=== PATIENT | male | born 1945 | race Caucasian/White ===

== ENCOUNTER 2018-03-01 12:31 | Emergency (ER) | payer MEDICARE, OTHER ==
--- NOTE | 2018-03-01 12:56 | ER Document Report ---
HPI - HPI Pain Level: 0 Notes: Patient is a 72-year-old male with a history of type 2 diabetes, chronic ulcer to the right heel, portal hypertension, ascites, congestive heart failure, pulmonary edema, lymphedema, A. fib who presents to the ED from the nursing facility complaining of an injury to his rt foot/toe. The nursing facility nurse states that he hit his foot off of his roommates wheelchair and then started bleeding. Patient is on Coumadin. Did not hit his head or lose consciousness. He has not had any nausea or vomiting. He has no other concerns or complaints at this time. Denies any headache, fever, head injury, neck pain, changes in vision/speech/mentation/hearing, URI, sore throat, chest pain, palpitations, syncope, cough, shortness of breath, wheeze, dyspnea, abdominal pain, nausea/vomiting/diarrhea, urinary retention, dysuria, hematuria , muscle paralysis/weakness, or rash. - ROS Systems Reviewed and Negative: Yes All other systems reviewed and negative Past Medical History - Social History Smoking Status: Unknown if Ever Smoked Family History: Reviewed & Not Pertinent Vertical Provider Document - CONSTITUTIONAL Agree With Documented VS: Yes Notes: PHYSICAL EXAMINATION: GENERAL: Well-appearing, well-nourished and in no acute distress. Answers questions appropriately. LUNGS: Breath sounds clear to auscultation bilaterally and equal. No wheezes rales or rhonchi. HEART: Regular rate and rhythm without murmurs, rubs, gallops. Musculoskeletal: Rt foot/ankle: + chronic appearing ulcer w/o erythema to the heel. + 2cm irregular semi deep laceration to the plantar 5th digit at the proximal fold. FROM to passive/active. Strength 5+/5. + dec sensation. No bony tenderness of the foot. Achilles intact. Extremities: 3+ pitting edema b/l. Peripheral pulses 1+. Capillary refill less than 3 seconds. NEUROLOGICAL: Normal speech. Normal sensory, motor exams PSYCH: Normal mood, normal affect. SKIN: see above. Warm, Dry, normal turgor, no rashes or lesions noted. - INFECTION CONTROL TRAVEL OUTSIDE OF THE [place] IN LAST 30 DAYS: No Course - Re-evaluation Re-evalutation: 03/01/18 13:50 Patient is an afebrile, well-hydrated, 72-year-old male who presents to the ED with a laceration to the rt 5th proximal anterior toe. Vitals are acceptable without any significant tachycardia, tachypnea, or hypoxia. PE is otherwise unremarkable for any neurovascular compromise, obvious tendon/ligament rupture, open fracture/dislocation, septic joint. X-ray was unremarkable for any acute pathology. Wound was thoroughly irrigated and cleansed. Wound edges were approximated appropriately utilizing 7 simple interrupted sutures. Wound dressing was placed for the toe as well as the ulcer on the heel. Wound instructions reviewed. Patient tolerated procedure well without any complications. Patient is nontoxic-appearing. No other labs or imaging warranted at this time based on H&P. I will send him home with a prescription for Keflex. Patient reports that his tetanus is up-to-date <5yrs per pt. Conservative measures otherwise for symptoms. Recheck with your PCM in 2-3 days. Consider consult orthopedics. Return to the ED with any worsening/ concerning symptoms otherwise as reviewed in discharge. Patient is in agreement. Procedures - Laceration/Wound Repair Right Toe 5th digit Time completed: 13:45 Wound length (cm): 0.7 Wound's Depth, Shape: Irregular, Other - semi deep. I could see an intact tendon. Not much tissue from skin to tendon/bone in that area. Laceration pre-procedure: Sterile PPE donned, Sterile drapes applied, Other - chlorhexadine Anesthetic type: 1% Lidocaine Volume Anesthetic (mLs): 5 Wound explored: Clean, No foreign body removed Irrigated w/ Saline (mLs): 120 Wound Debrided: none Wound Repaired With: Sutures Suture Size/Type: 4:0, Nylon Number of Sutures: 7 Layer Closure?: No Post-procedure wound care: Sterile dressing applied Post-procedure NV exam normal: Yes Complications: No Discharge - Discharge Clinical Impression: Laceration of toe, right Qualifiers: Encounter type: initial encounter Toe: lesser toe Damage to nail status: without damage Foreign body presence: without foreign body Qualified Code(s): S91.114A - Laceration without foreign body of right lesser toe(s) without damage to nail, initial encounter Condition: Stable Disposition: HOME, SELF-CARE Instructions: Antibiotic Ointment Protection ([facility]), Laceration Care ([facility]), Prophylactic Antibiotic ([facility]), Soap Cleansing ([facility]) Additional Instructions: Do not shower or bathe for 24 hours. After 24 hours you may shower but no submersion of the wound under water. Keep the original dressing on the wound for 24 hours unless the drainage soaks through. Change the dressing daily thereafter and keep the knots of the suture material clean from any dried discharge. You may leave the wound open to the air once there is no more discharge. See your PCM in 2-3 days for a recheck. Monitor for any signs of worsening pain or redness, purulent drainage, streaks, and/or fever. Return to the ED if noticing any of the above symptoms or as needed. Take medications as directed. Your sutures will need to be removed in 10 days. Prescriptions: Cephalexin Monohydrate [Keflex 500 mg Capsule] 500 mg PO TID #21 capsule Referrals: CRISTINA RODRIGUEZ MD [Primary Care Provider] - 03/03/18 [facility] [Provider Group] - Follow up as needed
--- NOTE | 2018-03-01 13:36 | RADIOLOGY REPORT (SQ) ---
EXAM DESCRIPTION: FOOT RIGHT COMPLETE COMPLETED DATE/TIME: 03/01/2018 1:17 pm REASON FOR STUDY: rt 5th digit laceration s/p injury COMPARISON: None. NUMBER OF VIEWS: Three views right foot. LIMITATIONS: No technical limitations. Severe limiting osteopenia. FINDINGS: Marked osteopenia. Allowing for lucency in the base of the distal phalanx of the great to e which may be related to osteoarthritis, no fracture evident. Reportedly, the site of concern is al ольга the 5th digit, where laceration occurred. No gross fracture or dislocation here. No radiopaque retained foreign body. OTHER: No other significant finding. IMPRESSION: Extremely limiting osteopenia. No fracture, findings as above. No evidence of radiopaq ue foreign body TECHNICAL DOCUMENTATION: JOB ID: [id number] Reading location - IP/workstation name: [email or web address]
[2018-03-01 14:15] VITALS: BP 119/72
== END 2018-03-01 14:45 | disposition home or self-care (01) ==
LOC: ER 12:31
DX: S91.114A Laceration without foreign body of right lesser toe(s) without damage to nail, initial encounter (principal); W22.8XXA Striking against or struck by other objects, initial encounter; Y92.129 Unspecified place in nursing home as the place of occurrence of the external cause; E11.621 Type 2 diabetes mellitus with foot ulcer; L97.419 Non-pressure chronic ulcer of right heel and midfoot with unspecified severity; R60.0 Localized edema; I48.91 Unspecified atrial fibrillation; Z79.01 Long term (current) use of anticoagulants
CPT/HCPCS: 99283

== ENCOUNTER 2018-03-04 14:11 | Inpatient (IN) | payer MEDICARE ==
[2018-03-04 14:57] LABS: ABSOLUTE BASOPHILS # (AUTO) 0.1 10^3/uL (0.0-0.2); ABSOLUTE EOSINOPHILS # (AUTO) 0.4 10^3/uL (0.0-0.6); ABSOLUTE LYMPHOCYTES (AUTO) 0.7 10^3/uL (0.5-4.7); ABSOLUTE MONOCYTES (AUTO) 0.6 10^3/uL (0.1-1.4); ABSOLUTE NEUT (AUTO) 4.7 10^3/uL (1.7-8.2); EOSINOPHILS % (AUTO) 5.8 % (0-6); HEMATOCRIT 29.9 % (37.9-51.0); HEMOGLOBIN 9.7 g/dL (13.5-17.0); LYMPHOCYTES % (AUTO) 11.4 % (13-45); MEAN CORPUSCULAR HEMOGLOBIN 25.9 pg (27.0-33.4); MEAN CORPUSCULAR HGB CONC 32.3 g/dL (32.0-36.0); MEAN CORPUSCULAR VOLUME 80 fl (80-97); MONOCYTES % (AUTO) 9.9 % (3-13); PLATELET COUNT 233 10^3/uL (150-450); RED BLOOD COUNT 3.72 10^6/uL (4.35-5.55); RED CELL DISTRIBUTION WIDTH 19.7 % (11.5-14.0); SEGMENTED NEUTROPHILS % (AUTO) 71.9 % (42-78); TOTAL CELLS COUNTED % (AUTO) 100 %; WHITE BLOOD COUNT 6.5 10^3/uL (4.0-10.5)
--- NOTE | 2018-03-04 15:09 | ER Document Report ---
ED General - General Chief Complaint: Shortness Of Breath Stated Complaint: SHORTNESS OF BREATH Time Seen by Provider: 03/04/18 15:08 Mode of Arrival: Medic Information source: Patient, Transfer Record, Emergency Med Personnel TRAVEL OUTSIDE OF THE [place] IN LAST 30 DAYS: No - HPI Onset: Last week - 2 WEEKS Onset/Duration: Gradual Quality of pain: No pain Associated symptoms: Shortness of breath, Other - ABDOMINAL PRESSURE/DISCOMFORT Exacerbated by: Movement Relieved by: Denies Similar symptoms previously: Yes Recently seen / treated by doctor: No - LAST SEEN 2 WKS AGO, HAD PARACENTESIS - Related Data Allergies/Adverse Reactions: oxycodone Allergy (Verified 03/04/18 14:14) Past Medical History - General Information source: Patient, Transfer Record, [facility] Records - Social History Smoking Status: Unknown if Ever Smoked Cigarette use (# per day): No Chew tobacco use (# tins/day): No Frequency of alcohol use: None Drug Abuse: None Lives with: Group [facility] - [facility] Family History: Reviewed & Not Pertinent Patient has suicidal ideation: No Patient has homicidal ideation: No - Past Medical History Cardiac Medical History: Reports: Hx Congestive Heart Failure - pulmonary edema , Hx Hypertension Pulmonary Medical History: Reports: None EENT Medical History: Reports: None Neurological Medical History: Reports: None Endocrine Medical History: Reports: Hx Diabetes Mellitus Type 2 Renal/ Medical History: Reports: None. Denies: Hx Peritoneal Dialysis Malignancy Medical History: Reports None GI Medical History: Reports: None Musculoskeletal Medical History: Reports None Psychiatric Medical History: Reports: None Surgical Hx: Negative Review of Systems - Review of Systems Constitutional: No symptoms reported EENT: No symptoms reported Cardiovascular: No symptoms reported Respiratory: See HPI Gastrointestinal: See HPI, Abdomen distended Genitourinary: No symptoms reported Musculoskeletal: No symptoms reported Skin: Other - STASIS DERMATITIS, BOTH LEGS Neurological/Psychological: No symptoms reported. denies: Confusion Physical Exam - Vital signs Vitals: Pulse Ox 97 03/04/18 14:15 Interpretation: Normal - General General appearance: Appears well, Alert In distress: None - HEENT Head: Normocephalic Eyes: Normal Conjunctiva: Normal Ears: Normal Nasal: Normal Mouth/Lips: Other - POOR DENTITION Mucous membranes: Normal - Respiratory Respiratory status: No respiratory distress Breath sounds: Normal - Cardiovascular Rhythm: Regular Heart sounds: Normal auscultation Murmur: No - Abdominal Distension: Distended, Fluid wave Bowel sounds: Hypoactive Tenderness: Nontender - Extremities General upper extremity: Normal inspection General lower extremity: Other - ZINC OXIDE BANDAGES, BILAT. LEGS. No: Normal inspection - Neurological Neuro grossly intact: Yes Cognition: Normal Orientation: AAOx4 - Psychological Associated symptoms: Normal affect, Normal mood - Skin Skin Temperature: Warm Skin Moisture: Dry Skin Color: Erythema - LEGS Course - Vital Signs Vital signs: Temp Pulse Resp BP Pulse Ox 97.6 F 22 H 124/77 94 03/04/18 14:22 03/04/18 16:03 03/04/18 16:03 03/04/18 16:03 - Laboratory Result Diagrams: 03/04/18 14:00 03/04/18 14:00 Laboratory results interpreted by me: 03/04/18 03/04/18 03/04/18 14:00 14:00 14:00 RBC 3.72 L Hgb 9.7 L Hct 29.9 L MCH 25.9 L RDW 19.7 H Lymphocytes % 11.4 L PT 31.2 H BUN 50 H Creatinine 1.83 H Est GFR ( Amer) 44 L Est GFR (Non-Af Amer) 36 L Glucose 130 H Direct Bilirubin 0.8 H ALT 16 L Alkaline Phosphatase 308 H Albumin 3.0 L - Diagnostic Test Radiology reviewed: Image reviewed, Reports reviewed - EKG Interpretation by Me EKG shows normal: abnormal: Sinus rhythm, QRS Complexes Rate: Normal Rhythm: A.Fib, A.Flutter, Other - PACER [place]/QRS: LBBB - Consults DR. COLINDRES Time consulted: 17:12 Consulted provider: will come to ER Discharge - Discharge Clinical Impression: Ascites Qualifiers: Ascites type: other type Qualified Code(s): R18.8 - Other ascites Dyspnea Qualifiers: Dyspnea type: unspecified Qualified Code(s): R06.00 - Dyspnea, unspecified Condition: Good Disposition: ADMITTED INPATIENT Admitting Provider: Hospitalist Unit Admitted: Telemetry
[2018-03-04 15:26] LABS: ALANINE AMINOTRANSFERASE 16 U/L (21-72); ALKALINE PHOSPHATASE 308 U/L (38-126); ANION GAP 11 (5-19); ASPARTATE AMINO TRANSFERASE 34 U/L (17-59); BILIRUBIN,DIRECT 0.8 mg/dL (0.0-0.4); BLOOD UREA NITROGEN 50 mg/dL (7-20); CALCIUM 8.7 mg/dL (8.4-10.2); CARBON DIOXIDE 24 mmol/L (22-30); CHLORIDE 105 mmol/L (98-107); GLUCOSE 130 mg/dL (75-110); POTASSIUM 4.8 mmol/L (3.6-5.0); TOTAL PROTEIN 6.8 g/dL (6.3-8.2)
[2018-03-04 15:31] LABS: INTERNATIONAL RATION (INR) 2.85; PROTHROMBIN TIME 31.2 SEC (11.4-15.4)
--- NOTE | 2018-03-04 15:58 | RADIOLOGY REPORT (SQ) ---
EXAM DESCRIPTION: CHEST SINGLE VIEW COMPLETED DATE/TIME: 03/04/2018 3:45 pm REASON FOR STUDY: sob COMPARISON: None. NUMBER OF VIEWS: One view. TECHNIQUE: Single frontal radiographic view of the chest acquired. LIMITATIONS: Limited lordotic positioning. FINDINGS: LUNGS AND PLEURA: No opacities, masses or pneumothorax. No pleural effusion. MEDIASTINUM AND HILAR STRUCTURES: No masses or contour abnormality. HEART AND VASCULATURE: Cardiac enlargement. Vascular congestion. BONES: No acute findings. HARDWARE: Sternotomy wires. Pacemaker. Clips in the right axilla. OTHER: No other significant finding. IMPRESSION: CARDIAC ENLARGEMENT. VASCULAR CONGESTION. TECHNICAL DOCUMENTATION: JOB ID: [id number] [employer] All Rights Reserved Reading location - IP/workstation name: [email or web address]
[2018-03-04] MEDS ORDERED: DEXTROSE 40% GEL 15 GM TUBE PO PRN ×2 (20:10)
[2018-03-04] MEDS ORDERED: GLUCAGON,HUMAN RECOMB 1 MG INJ IM PRN (20:10)
[2018-03-04] MEDS ORDERED: DEXTROSE 50%-WATER 25 GM/50 ML DISP.SYRIN IV PRN ×2 (20:10)
--- NOTE | 2018-03-04 20:17 | PDOC H&P ---
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 Patient says that he had his last paracentesis 3 months ago. He said since then he has been having progressive and recurrence of his abdominal distention. He denies abdominal pain. He says he had loose stools which are chronic. He does take lactulose. He denies any fever or chills. He denies any hematemesis or melena. Patient denies shortness of breath. No fever or chills. No cough. No jaundice. He denies melena or hematochezia. Past Medical History Cardiac Medical History: Reports: Atrial Fibrillation, Congestive Heart Failure - pulmonary edema, Hypertension Pulmonary Medical History: Reports: None EENT Medical History: Reports: None Neurological Medical History: Reports: None Endocrine Medical History: Reports: Diabetes Mellitus Type 2 Renal/ Medical History: Reports: None Malignancy Medical History: Reports: None GI Medical History: Reports: None Musculoskeltal Medical History: Reports: None, Arthritis - osteo Psychiatric Medical History: Reports: None Hematology: Reports: Anemia - iron deficiency Past Surgical History Past Surgical History: Reports: Appendectomy, Orthopedic Surgery Social History Lives with: [facility] Smoking Status: Unknown if Ever Smoked Family History Family History: Reviewed & Not Pertinent Parental Family History Reviewed: Yes Children Family History Reviewed: No Sibling(s) Family History Reviewed.: No Medication/Allergy Allergies/Adverse Reactions: oxycodone Allergy (Verified 03/04/18 14:14) Physical Exam Vital Signs: Temp Pulse Resp BP Pulse Ox 97.6 F 16 131/118 H 99 03/04/18 14:22 03/04/18 18:53 03/04/18 19:01 03/04/18 18:53 General appearance: PRESENT: no acute distress Head exam: PRESENT: atraumatic, normocephalic Eye exam: PRESENT: conjunctiva pink Neck exam: ABSENT: carotid bruit, JVD, lymphadenopathy, thyromegaly Respiratory exam: PRESENT: other - note of rhonchi on the bases, no wheezing GI/Abdominal exam: PRESENT: ascites, distended, firm, other - Note of distended abdominal veins, multiple spider angiomas, no tenderness Rectal exam: PRESENT: deferred Extremities exam: PRESENT: +1 edema Neurological exam: PRESENT: alert, awake, oriented to person, oriented to place , oriented to time, oriented to situation, CN II-XII grossly intact. ABSENT: motor sensory deficit Results Impressions: Chest X-Ray 03/04/18 14:48 IMPRESSION: CARDIAC ENLARGEMENT. VASCULAR CONGESTION. Assessment & Plan - Diagnosis (1) Ascites due to alcoholic cirrhosis Is this a current diagnosis for this admission?: Yes Plan: Patient is dense ascites. He has a known history of recurrent and refractory ascites secondary to his end-stage liver disease. Past paracentesis was 3 months ago per patient. Will consult IR for paracentesis. Will continue patient home diuretics. (2) Atrial fibrillation Qualifiers: Atrial fibrillation type: chronic Qualified Code(s): I48.2 - Chronic atrial fibrillation Is this a current diagnosis for this admission?: Yes Plan: Patient is a known chronic atrial fibrillation. He is on propanolol for his portal hypertension from chronic liver disease. (3) Pulmonary congestion Is this a current diagnosis for this admission?: Yes Plan: Patient's chest x-ray shows some vascular congestion. Patient does not however appear to be in acute CHF exacerbation. We will resume his home diuretic regimen. (4) Insulin dependent diabetes mellitus Is this a current diagnosis for this admission?: Yes Plan: Patient will be started on Levemir and sliding scale.
[2018-03-04 20:27] LABS: APPEARANCE,URINE CLEAR; BILIRUBIN,URINE NEGATIVE (NEGATIVE); COLOR,URINE YELLOW; GLUCOSE, URINE NEGATIVE (NEGATIVE); KETONES,URINE NEGATIVE (NEGATIVE); LEUKOCYTE ESTERASE,URINE NEGATIVE (NEGATIVE); NITRITE,URINE NEGATIVE (NEGATIVE); PROTEIN,URINE NEGATIVE (NEGATIVE)
--- NOTE | 2018-03-04 21:57 | EKG REPORT ---
SEVERITY:- ABNORMAL ECG - AFIB/FLUT AND V-PACED COMPLEXES LEFT BUNDLE BRANCH BLOCK : Confirmed by: Leonardo Angel 04-Mar-2018 21:55:55
[2018-03-04] MEDS: PROPRANOLOL HCL 10 MG TABLET PO SCH (22:40)
[2018-03-04] MEDS: INSULIN DETEMIR 100 UNIT/ML 3 ML PEN SUBCUT SCH (22:40)
[2018-03-05] MEDS: PROPRANOLOL HCL 10 MG TABLET PO SCH ×3 (05:18→22:37)
[2018-03-05 07:43] LABS: HEMATOCRIT 29.2 % (37.9-51.0); HEMOGLOBIN 9.5 g/dL (13.5-17.0); MEAN CORPUSCULAR HEMOGLOBIN 25.9 pg (27.0-33.4); MEAN CORPUSCULAR HGB CONC 32.4 g/dL (32.0-36.0); MEAN CORPUSCULAR VOLUME 80 fl (80-97); PLATELET COUNT 225 10^3/uL (150-450); RED BLOOD COUNT 3.66 10^6/uL (4.35-5.55); RED CELL DISTRIBUTION WIDTH 19.5 % (11.5-14.0); WHITE BLOOD COUNT 6.5 10^3/uL (4.0-10.5)
[2018-03-05 07:54] LABS: INTERNATIONAL RATION (INR) 2.72; PROTHROMBIN TIME 30.2 SEC (11.4-15.4)
[2018-03-05 08:07] LABS: ANION GAP 12 (5-19); BLOOD UREA NITROGEN 49 mg/dL (7-20); CALCIUM 9.1 mg/dL (8.4-10.2); CARBON DIOXIDE 23 mmol/L (22-30); CHLORIDE 106 mmol/L (98-107); GLUCOSE 86 mg/dL (75-110); POTASSIUM 4.5 mmol/L (3.6-5.0); SODIUM 140.7 mmol/L (137-145); TOTAL PROTEIN 6.4 g/dL (6.3-8.2)
[2018-03-05] MEDS: INSULIN DETEMIR 100 UNIT/ML 3 ML PEN SUBCUT SCH ×2 (09:52→22:38)
[2018-03-05] MEDS: SPIRONOLACTONE 25 MG TABLET PO SCH (09:54)
[2018-03-05] MEDS: FUROSEMIDE 40 MG TABLET PO SCH ×2 (09:54→17:26)
[2018-03-05] MEDS: PANTOPRAZOLE SODIUM 40 MG VIAL IV SCH (09:54)
[2018-03-05] MEDS: LACTULOSE SYRUP 20 GM/30 ML UDCUP PO SCH ×2 (09:55→17:27)
--- NOTE | 2018-03-05 18:05 | PDOC PROGRESS REPORT ---
Subjective Progress Note for:: 03/05/18 Subjective:: No acute event overnight. Patient denies any acute complaint. Continues to have minimal abdominal discomfort. Denies shortness of breath or chest pain. Awaiting for paracentesis by IR. Reason For Visit: REFRACTORY ASCITES Physical Exam Vital Signs: Temp Pulse Resp BP Pulse Ox 97.2 F 78 17 112/68 100 03/05/18 15:27 03/05/18 15:27 03/05/18 15:27 03/05/18 15:27 03/05/18 15:27 Intake & Output 03/04/18 03/05/18 03/06/18 06:59 06:59 06:59 Intake Total 100 620 Output Total 200 Balance -100 620 Weight 264 lb 5.348 oz General appearance: PRESENT: no acute distress, well-developed, well-nourished Head exam: PRESENT: atraumatic, normocephalic Eye exam: PRESENT: conjunctiva pink Neck exam: ABSENT: carotid bruit, JVD, lymphadenopathy, thyromegaly Respiratory exam: PRESENT: clear to auscultation myron Cardiovascular exam: PRESENT: irregular rhythm Pulses: PRESENT: normal dorsalis pedis pul GI/Abdominal exam: PRESENT: ascites, distended, firm Rectal exam: PRESENT: deferred Neurological exam: PRESENT: alert, oriented to person, oriented to place, oriented to time Results Laboratory Results: 03/05/18 07:23 03/05/18 07:23 03/04/18 03/05/18 03/05/18 20:10 07:23 07:23 WBC 6.5 RBC 3.66 L Hgb 9.5 L Hct 29.2 L MCV 80 MCH 25.9 L MCHC 32.4 RDW 19.5 H Plt Count 225 Sodium 140.7 Potassium 4.5 Chloride 106 Carbon Dioxide 23 Anion Gap 12 BUN 49 H Creatinine 1.86 H Est GFR ( Amer) 43 L Est GFR (Non-Af Amer) 36 L Glucose 86 Calcium 9.1 Magnesium 2.2 Total Protein 6.4 Urine Color YELLOW Urine Appearance CLEAR Urine pH 5.0 Ur Specific [place] 1.010 Urine Protein NEGATIVE Urine Glucose (UA) NEGATIVE Urine Ketones NEGATIVE Urine Blood NEGATIVE Urine Nitrite NEGATIVE Ur Leukocyte Esterase NEGATIVE Urine WBC (Auto) 0 Urine RBC (Auto) 0 03/05/18 07:23 Troponin I 0.020 Impressions: Chest X-Ray 03/04/18 14:48 IMPRESSION: CARDIAC ENLARGEMENT. VASCULAR CONGESTION. Assessment & Plan - Diagnosis (1) Ascites due to alcoholic cirrhosis Is this a current diagnosis for this admission?: Yes Plan: Awaiting for paracentesis by IR. INR is 2.7 today. Will give a dose of vitamin K. (2) Atrial fibrillation Qualifiers: Atrial fibrillation type: chronic Qualified Code(s): I48.2 - Chronic atrial fibrillation Is this a current diagnosis for this admission?: Yes Plan: Patient has a known chronic atrial fibrillation. Coumadin held due to contemplated procedure. He is on propanolol for his portal hypertension from chronic liver disease. (3) Insulin dependent diabetes mellitus Is this a current diagnosis for this admission?: Yes Plan: Continue Levemir and sliding scale. (4) Systolic heart failure Qualifiers: Heart failure chronicity: chronic Qualified Code(s): I50.22 - Chronic systolic (congestive) heart failure Is this a current diagnosis for this admission?: Yes Plan: He did have some pulmonary congestion on yesterday's chest x-ray but patient is not in acute exacerbation. Continue home diuretic regimen.
[2018-03-05] MEDS ORDERED: PHYTONADIONE 5 MG TABLET PO ONE (18:30)
[2018-03-06] MEDS: PROPRANOLOL HCL 10 MG TABLET PO SCH ×3 (05:56→23:00)
[2018-03-06 06:57] LABS: INTERNATIONAL RATION (INR) 2.17; PROTHROMBIN TIME 25.2 SEC (11.4-15.4)
[2018-03-06] MEDS ORDERED: NORMAL SALINE 250 ML IV PRN (08:21)
[2018-03-06] MEDS: PANTOPRAZOLE SODIUM 40 MG VIAL IV SCH (09:24)
[2018-03-06] MEDS: SPIRONOLACTONE 25 MG TABLET PO SCH (09:25)
[2018-03-06] MEDS: FUROSEMIDE 40 MG TABLET PO SCH ×2 (09:25→17:38)
[2018-03-06] MEDS: LACTULOSE SYRUP 20 GM/30 ML UDCUP PO SCH ×2 (09:25→17:34)
[2018-03-06] MEDS: INSULIN DETEMIR 100 UNIT/ML 3 ML PEN SUBCUT SCH ×2 (09:26→23:00)
--- NOTE | 2018-03-06 12:22 | PDOC PROGRESS REPORT ---
Subjective Progress Note for:: 03/06/18 Subjective:: No acute event overnight. Patient denies any acute complaint. Denies abdominal pain today. Denies shortness of breath or chest pain. He is tolerating diet well. Awaiting for paracentesis by IR. Reason For Visit: REFRACTORY ASCITES Physical Exam Vital Signs: Temp Pulse Resp BP Pulse Ox 97.3 F 80 18 115/67 96 03/06/18 07:15 03/06/18 07:15 03/06/18 07:15 03/06/18 07:15 03/06/18 07:15 Intake & Output 03/05/18 03/06/18 03/07/18 06:59 06:59 06:59 Intake Total 100 920 359 Output Total 200 425 Balance -100 495 359 Weight 264 lb 5.348 oz 261 lb 14.546 oz General appearance: PRESENT: no acute distress, well-developed, well-nourished Head exam: PRESENT: atraumatic, normocephalic Neck exam: ABSENT: carotid bruit, JVD, lymphadenopathy, thyromegaly Respiratory exam: PRESENT: crackles - Few crackles in the bases Cardiovascular exam: PRESENT: irregular rhythm Pulses: PRESENT: normal dorsalis pedis pul GI/Abdominal exam: PRESENT: ascites, distended Rectal exam: PRESENT: deferred Neurological exam: PRESENT: alert, awake, oriented to person, oriented to place , oriented to time, oriented to situation, CN II-XII grossly intact. ABSENT: motor sensory deficit Results Laboratory Results: 03/05/18 07:23 03/05/18 07:23 03/06/18 09:02 Blood Type B POSITIVE 03/05/18 07:23 Troponin I 0.020 Impressions: Chest X-Ray 03/04/18 14:48 IMPRESSION: CARDIAC ENLARGEMENT. VASCULAR CONGESTION. Assessment & Plan - Diagnosis (1) Ascites due to alcoholic cirrhosis Is this a current diagnosis for this admission?: Yes Plan: Awaiting for paracentesis by IR. INR is 2.1 today. Will be going for paracentesis if INR is less than 2. (2) Atrial fibrillation Qualifiers: Atrial fibrillation type: chronic Qualified Code(s): I48.2 - Chronic atrial fibrillation Is this a current diagnosis for this admission?: Yes Plan: Patient has a known chronic atrial fibrillation. Coumadin held due to contemplated procedure. He is on propanolol for his portal hypertension from chronic liver disease. (3) Insulin dependent diabetes mellitus Is this a current diagnosis for this admission?: Yes Plan: Continue Levemir and sliding scale. (4) Systolic heart failure Qualifiers: Heart failure chronicity: chronic Qualified Code(s): I50.22 - Chronic systolic (congestive) heart failure Is this a current diagnosis for this admission?: Yes Plan: He did have some pulmonary congestion initially on chest x-ray but patient is not in acute exacerbation. Continue home diuretic regimen. - Time Time Spent with patient: 15-24 minutes
[2018-03-06 13:50] LABS: INTERNATIONAL RATION (INR) 1.86; PROTHROMBIN TIME 22.3 SEC (11.4-15.4)
[2018-03-06] MEDS: ALBUMIN HUMAN 12.5 GM/50 ML RTUINJ IV SCH ×5 (15:55→23:43)
--- NOTE | 2018-03-06 16:35 | RADIOLOGY REPORT (SQ) ---
EXAM DESCRIPTION: U/S ABD PARACENTESIS COMPLETED DATE/TIME: 03/06/2018 4:01 pm REASON FOR STUDY: tensed ascites COMPARISON None. LIMITATIONS: None. PROCEDURE: After obtaining informed consent, the patient was brought to the ultrasound suite. The p rocedure was performed with the patient on a gurney. Ultrasound was used to identify a prominent poc ket of ascites in the left lower quadrant. An appropriate access site was selected. The patient was prepped and draped in usual sterile fashion. The access site was anesthetized with 5 mL 1% lidocai ne. A Kwed-[id number] needle was advanced into the fluid. After aspiration of fluid the needle, the catheter was advanced off the needle into the fluid. A total of 10 L clear yellow fluid was removed . The patient tolerated the procedure well, and left the department in satisfactory condition. IMPRESSION: Successful ultrasound-guided paracentesis, large volume Fluid sent for testing. COMMENT: Patient medication list reviewed: Yes- Quality ID# [id number]:Eligible professional attests to doc umenting in the medical record they obtained, updated, or reviewed the patient's current medications. TECHNICAL DOCUMENTATION: JOB ID: [id number] [employer]- All Rights Reserved Reading location - IP/workstation name: [id number]
[2018-03-06 16:41] LABS: FLUID APPEARANCE HAZY; FLUID COLOR YELLOW; FLUID SOURCE ABDOMEN; FLUID TYPE PERITONEAL; FLUID VISCOSITY SLIGHTLY VISCOUS
[2018-03-06] MEDS ORDERED: WARFARIN SODIUM 3 MG TABLET PO SCH (22:00)
[2018-03-07 04:42] LABS: INTERNATIONAL RATION (INR) 1.72
[2018-03-07 04:55] LABS: ANION GAP 11 (5-19); BLOOD UREA NITROGEN 53 mg/dL (7-20); CALCIUM 8.5 mg/dL (8.4-10.2); CARBON DIOXIDE 22 mmol/L (22-30); CHLORIDE 106 mmol/L (98-107); GLUCOSE 111 mg/dL (75-110); POTASSIUM 3.9 mmol/L (3.6-5.0); SODIUM 139.1 mmol/L (137-145)
[2018-03-07] MEDS: PROPRANOLOL HCL 10 MG TABLET PO SCH ×2 (06:00→14:12)
[2018-03-07] MEDS: INSULIN DETEMIR 100 UNIT/ML 3 ML PEN SUBCUT SCH (10:44)
[2018-03-07] MEDS: PANTOPRAZOLE SODIUM 40 MG VIAL IV SCH (10:45)
[2018-03-07] MEDS: FUROSEMIDE 40 MG TABLET PO SCH ×2 (10:45→17:22)
[2018-03-07] MEDS: LACTULOSE SYRUP 20 GM/30 ML UDCUP PO SCH ×3 (10:45→17:25)
[2018-03-07] MEDS: SPIRONOLACTONE 25 MG TABLET PO SCH (10:46)
--- NOTE | 2018-03-07 14:04 | PDOC TRANSFER SUMMARY ---
General - Admit/Disc Date/PCP Admission Date/Primary Care Provider: 03/07/18 09:45 Discharge Date: 03/07/18 - Discharge Diagnosis (1) Ascites due to alcoholic cirrhosis Is this a current diagnosis for this admission?: Yes (2) Atrial fibrillation Is this a current diagnosis for this admission?: Yes (3) Insulin dependent diabetes mellitus Is this a current diagnosis for this admission?: Yes (4) Systolic heart failure Is this a current diagnosis for this admission?: Yes - Additional Information Discharge Diet: As Tolerated Discharge Activity: Activity As Tolerated Prescriptions: Lisinopril [Prinivil 2.5 mg Tablet] 2.5 mg PO DAILY 30 Days #30 tablet Home Medications: Allopurinol [Zyloprim 100 mg Tablet] 100 mg PO DAILY 03/04/18 Atorvastatin Calcium [Lipitor 80 mg Tablet] 80 mg PO QHS 03/04/18 Bupropion HCl [Wellbutrin Xl 300mg 24hr Tablet] 300 mg PO DAILY 03/04/18 Fluticasone Propionate [Flonase Nasal Davis 50 Mcg/Davis 16 gm] 2 spray NASL DAILY 03/04/18 Furosemide [Lasix 40 mg Tablet] 40 mg PO BID 03/04/18 Glucagon,Human Recombinant [Glucagon Emergency Kit] 1 mg IM PRN PRN 03/04/18 Insulin Aspart [Novolog Flexpen] 0 units SQ .SLIDING SCALE 03/04/18 Insulin Aspart [Novolog Flexpen] 4 units SQ TID 03/04/18 Insulin Detemir [Levemir Flextouch] 23 units SQ DAILY 03/04/18 Ipratropium [place] [Atrovent 0.02% Neb 0.5 mg/2.5 ml Ampul] 0.5 mg NEB Q4 03/04 Lactulose [Constulose 10 gm/15 mL Oral Solution] 10 gm PO BID 03/04/18 Levothyroxine Sodium [Synthroid 0.05 mg Tablet] 0.05 mg PO Q6AM 03/04/18 Magnesium Oxide [Mag-Ox 400 mg Tablet] 400 mg PO BID 03/04/18 Ondansetron HCl [Zofran 4 mg Tablet] 4 mg PO Q6HP PRN 03/04/18 Pantoprazole Sodium [Protonix] 40 mg PO BID 03/04/18 Potassium Chloride [Klor-Con M20] 20 meq PO DAILY 03/04/18 Spironolactone [Aldactone] 50 mg PO DAILY 03/04/18 Tramadol HCl [Ultram 50 mg Tablet] 50 mg PO Q8HP PRN 03/04/18 Warfarin Sodium [Coumadin 3 mg Tablet] 3 mg PO QHS 03/04/18 Lisinopril [Prinivil 2.5 mg Tablet] 2.5 mg PO DAILY 30 Days #30 tablet 03/07/18 History of Present Illness Admission Date/PCP: 03/07/18 09:45 Patient complains of: abdominal distention History of Present Illness: AMADOU QUIROGA is a 72 year old male with a past medical history of 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 Patient says that he had his last paracentesis 3 months ago. He said since then he has been having progressive and recurrence of his abdominal distention. He denies abdominal pain. He says he had loose stools which are chronic. He does take lactulose. He denies any fever or chills. He denies any hematemesis or melena. Patient denies shortness of breath. No fever or chills. No cough. No jaundice. He denies melena or hematochezia. Hospital Course Hospital Course: Mr. Quiroga is a 72-year-old location of the past medical history of portal hypertension, end-stage liver disease, chronic refractory/recurrent ascites, systolic heart failure with EF of 30%, insulin-dependent diabetes mellitus and hypertension who presented with progressive abdominal distention in the past several weeks. Patient is coming from a jail. Patient was admitted's office for paracentesis. INR was elevated upon presentation hence I are related for any to codeine. Patient was given vitamin K and FFP. Coumadin was initially held. Patient underwent large-volume paracentesis on 03/06/18 and had a total 10 L of fluid out. There is no concern for SBP. Due to large volume paracentesis, patient received 3 g of albumin. Patient was stable throughout this hospital course. No acute events. No electrolyte abnormalities. His home diuretic regimen was resumed. Recommend scheduling patient for regular large volume paracentesis on outpatient basis. Follow-up with GI and PCP in 5- 7 days. Physical Exam Vital Signs: Temp Pulse Resp BP Pulse Ox 97.3 F 79 18 115/68 100 03/07/18 12:00 03/07/18 12:00 03/07/18 12:00 03/07/18 12:00 03/07/18 12:00 General appearance: PRESENT: no acute distress Head exam: PRESENT: atraumatic, normocephalic Eye exam: PRESENT: conjunctiva pink Neck exam: ABSENT: carotid bruit, JVD, lymphadenopathy, thyromegaly Respiratory exam: PRESENT: clear to auscultation myron. ABSENT: rales, rhonchi, wheezes Cardiovascular exam: PRESENT: irregular rhythm GI/Abdominal exam: PRESENT: ascites, normal bowel sounds, soft Rectal exam: PRESENT: deferred Neurological exam: PRESENT: alert, awake, oriented to person, oriented to place , oriented to time, oriented to situation, CN II-XII grossly intact. ABSENT: motor sensory deficit Results Impressions: Chest X-Ray 03/04/18 14:48 IMPRESSION: CARDIAC ENLARGEMENT. VASCULAR CONGESTION. Paracentesis Ultrasound 03/06/18 08:00 IMPRESSION: Successful ultrasound-guided paracentesis, large volume Fluid sent for testing. Transfer Plan - Time Spent with Patient Time spent with patient: Less than 30 Minutes Qualifiers - * PATIENT BEING DISCHARGED WITH ANY OF THE FOLLOWING DIAGNOSIS: Heart Failure VTE patient discharged on overlapping Therapy?: Yes HF Pt being discharged on ACEI for LVEF less than 40%?: Yes HF Pt being discharged on ARBS for LVEF less than 40%?: Yes HF Pt with Afib discharged with Warfarin?: Yes HF Pt discharged on evidence-based Beta Jean Pierre:: No Reason(s) for not prescribing evidence-based Beta Jean Pierre:: Tx not tolerated - on propanolol for portal HTN, BP running low, just started in ACEi
[2018-03-07] MEDS: INSULIN LISPRO 100 UNIT/ML 3 ML VIAL SUBCUT PRN ×2 (14:12→17:22)
[2018-03-07 16:28] VITALS: BP 115/62
[2018-03-08] MEDS ORDERED: LISINOPRIL 5 MG TABLET PO SCH (10:00)
== END 2018-03-07 19:33 | DRG 433 ==
LOC: ER 14:11 → INTOOBSV 19:20 → EH 19:20 → 5 21:24 → OBSVTOIN 03-07 09:45
PROVIDERS: ADMIT Internal Medicine; ATTEND Internal Medicine
PROC: 0W9G3ZX Drainage of Peritoneal Cavity, Percutaneous Approach, Diagnostic (ICD-10-PCS; principal; 2018-03-06)
PROC: 30233R1 Transfusion of Nonautologous Platelets into Peripheral Vein, Percutaneous Approach (ICD-10-PCS; 2018-03-06)
DX: K70.31 Alcoholic cirrhosis of liver with ascites (principal); I13.0 Hypertensive heart and chronic kidney disease with heart failure and stage 1 through stage 4 chronic kidney disease, or unspecified chronic kidney disease; I50.22 Chronic systolic (congestive) heart failure; R79.1 Abnormal coagulation profile; F10.20 Alcohol dependence, uncomplicated; E11.22 Type 2 diabetes mellitus with diabetic chronic kidney disease; N18.3 Chronic kidney disease, stage 3 (moderate); I48.2 Chronic atrial fibrillation; M19.90 Unspecified osteoarthritis, unspecified site; Z79.01 Long term (current) use of anticoagulants; Z87.891 Personal history of nicotine dependence; Z90.49 Acquired absence of other specified parts of digestive tract; Z79.4 Long term (current) use of insulin; Z88.5 Allergy status to narcotic agent
CPT/HCPCS: 36415; 36430; 49083; 71045; 80048; 80053; 81001; 82962; 83615; 83735; 84155; 84157; 84484; 85025; 85027; 85610; 86900; 86901; 87070; 87075; 87205; 89050; 93005; 93010; 99285; G0378; J1815; J3490; P9017; P9047; S0164

== ENCOUNTER 2018-03-09 13:09 | Emergency (ER) | payer MEDICARE ==
[2018-03-09 13:32] VITALS: BP 112/57
--- NOTE | 2018-03-09 14:34 | ER Document Report ---
ED Medical Screen (RME) - General Chief Complaint: Laceration Stated Complaint: FOOT WOUND Time Seen by Provider: 03/09/18 14:34 Mode of Arrival: Wheelchair Information source: Patient Notes: 72-year-old sent from [place] due to a reopened laceration base of his right fifth toe. It has iodoform gauze in it but when you lift it and open it you can see tendon. TRAVEL OUTSIDE OF THE [place] IN LAST 30 DAYS: No - Related Data Allergies/Adverse Reactions: oxycodone Allergy (Verified 03/04/18 14:14) Past Medical History - Past Medical History Cardiac Medical History: Reports: Hx Atrial Fibrillation, Hx Congestive Heart Failure - pulmonary edema, Hx Hypertension Endocrine Medical History: Reports: Hx Diabetes Mellitus Type 2 Renal/ Medical History: Denies: Hx Peritoneal Dialysis GI Medical History: Reports: Hx Cirrhosis Musculoskeltal Medical History: Reports Hx Arthritis - osteo Past Surgical History: Reports: Hx Abdominal Surgery - umbilical hernia repair/ AAA, Hx Appendectomy, Hx Cardiac Surgery - pacemaker, Hx Open Heart Surgery - CABG, Hx Orthopedic Surgery Physical Exam - Vital signs Vitals: Temp Pulse Resp BP Pulse Ox 98.4 F 82 18 112/57 L 97 03/09/18 13:31 03/09/18 13:31 03/09/18 13:31 03/09/18 13:31 03/09/18 13:31 Course - Vital Signs Vital signs: Temp Pulse Resp BP Pulse Ox 98.4 F 82 18 112/57 L 97 03/09/18 13:31 03/09/18 13:31 03/09/18 13:31 03/09/18 13:31 03/09/18 13:31
--- NOTE | 2018-03-09 14:47 | ER Document Report ---
ED Wound - General Mode of Arrival: Wheelchair TRAVEL OUTSIDE OF THE [place] IN LAST 30 DAYS: No - General Chief Complaint: Laceration Stated Complaint: FOOT WOUND Time Seen by Provider: 03/09/18 14:34 Notes: This 72-year-old male patient is sent from the longterm to have a toe laceration sutured. He originally suffered a fall on 02/28/2018, was seen in the emergency room on 03/01/2018. A laceration on the plantar surface of the right fifth toe at the MTP crease was sutured. The patient was in here on 03/06/2018 and had 10 L of ascites fluid removed from his abdomen. The history I was told is that the sutures were falling out so they were removed at the longterm today. At some point they decided to send the patient to the emergency room to have sutures placed again. The patient has multiple comorbidities, including type 2 diabetes managed with insulin, atrial fibrillation managed with Coumadin, morbid obesity, end-stage alcoholic liver disease with recurring ascites. He has bandages on his lower extremities going down to the midfoot region bilaterally due to chronic wounds from skin splitting open according to the patient. For all of these reasons noted above, and the fact that this is a nonhealing wound which is now 9 days old, suturing this wound has an unacceptable risk of infection. The wound is noted to have the wound edges approximated due to hyperflexion of all of the toes. If the toe is lifted to examine the wound, it causes wound edges, part exposing a flexor tendon. The area does not look infected at this time. The wound will be treated with bacitracin ointment, 2 x 2 gauze not to enter the wound cavity, and tape. (MICA RIDDLE) - Related Data Allergies/Adverse Reactions: oxycodone Allergy (Verified 03/04/18 14:14) Past Medical History - General Information source: Patient - Social History Smoking Status: Former Smoker Cigarette use (# per day): No Frequency of alcohol use: None - previous heavy use Drug Abuse: None Lives with: Family Family History: Reviewed & Not Pertinent - Past Medical History Cardiac Medical History: Reports: Hx Atrial Fibrillation, Hx Congestive Heart Failure - pulmonary edema, Hx Hypertension Endocrine Medical History: Reports: Hx Diabetes Mellitus Type 2 Renal/ Medical History: Denies: Hx Peritoneal Dialysis GI Medical History: Reports: Hx Cirrhosis Musculoskeletal Medical History: Reports Hx Arthritis - osteo Past Surgical History: Reports: Hx Abdominal Surgery - umbilical hernia repair/ AAA, Hx Appendectomy, Hx Cardiac Surgery - pacemaker, Hx Open Heart Surgery - CABG, Hx Orthopedic Surgery Review of Systems - Review of Systems Constitutional: No symptoms reported EENT: No symptoms reported Cardiovascular: No symptoms reported Respiratory: No symptoms reported Gastrointestinal: No symptoms reported Genitourinary: No symptoms reported Male Genitourinary: No symptoms reported Musculoskeletal: No symptoms reported Skin: See HPI, Other - skin laceration Hematologic/Lymphatic: No symptoms reported Neurological/Psychological: No symptoms reported -: Yes All other systems reviewed and negative Physical Exam - Vital signs Vitals: Temp Pulse Resp BP Pulse Ox 98.4 F 82 18 112/57 L 97 03/09/18 13:31 03/09/18 13:31 03/09/18 13:31 03/09/18 13:31 03/09/18 13:31 - Notes Notes: Physical Exam: General: Alert, appears well. HEENT: Normocephalic. Atraumatic. PERRL. Extraocular movements intact. Oropharynx clear. Neck: Supple. Non-tender. Respiratory: No respiratory distress. Clear and equal breath sounds bilaterally. Cardiovascular: Regular rate and rhythm. Abdominal: Normal Inspection. Non-tender. No distension. Normal Bowel Sounds. Back: Non-tender. No deformity or step off. Extremities: Moves all four extremities. Upper extremities: Normal inspection. Normal ROM. Lower extremities: Normal inspection. No edema. Normal ROM. Neurological: Normal cognition. AAOx4. Normal speech. Psychological: Normal affect. Normal Mood. Skin: Laceration on the plantar surface of the right fifth toe at the MTP crease , The wound is noted to have the wound edges approximated due to hyperflexion of all of the toes. If the toe is lifted to examine the wound, it causes wound edges, part exposing a flexor tendon. The area does not look infected at this time. (TIAGO LOPEZ) - Vital Signs Vital signs: Temp Pulse Resp BP Pulse Ox 98.4 F 82 18 112/57 L 97 03/09/18 16:13 03/09/18 16:13 03/09/18 16:13 03/09/18 16:13 03/09/18 16:13 Discharge - Discharge Clinical Impression: Laceration of fifth toe of right foot with complication Qualifiers: Encounter type: initial encounter Qualified Code(s): S91.114A - Laceration without foreign body of right lesser toe(s) without damage to nail, initial encounter Condition: Stable Disposition: HOME, SELF-CARE Additional Instructions: This is a chronic nonhealing wound in a patient with multiple comorbidities. Suturing the wound closed at this time would have an unacceptable risk for infection. The wound does not open on its own, it is completely intact unless the toe is lifted to examine the wound. Recommendations at this time are to place a small amount of bacitracin ointment with a 2 x 2 under the toe and have that taped in place. Try not to push the 2 x 2 up into the wound, so that the wound edges can stay approximated in hopefully will heal eventually. Follow-up with the wound care clinic, [facility], or [facility] for surgery. Referrals: RCISTINA RODRIGUEZ MD [Primary Care Provider] - Follow up as needed Scribe Attestation: 03/09/18 15:05 I personally performed the services described in the documentation, reviewed and edited the documentation which was dictated to the scribe in my presence, and it accurately records my words and actions. (MICA RIDDLE)
== END 2018-03-09 17:19 | disposition home or self-care (01) ==
LOC: ER 13:09
DX: S91.114A Laceration without foreign body of right lesser toe(s) without damage to nail, initial encounter (principal); W45.8XXA Other foreign body or object entering through skin, initial encounter; E11.9 Type 2 diabetes mellitus without complications; I48.91 Unspecified atrial fibrillation; I50.9 Heart failure, unspecified; Z95.1 Presence of aortocoronary bypass graft; Z79.4 Long term (current) use of insulin; Z79.02 Long term (current) use of antithrombotics/antiplatelets; Z88.6 Allergy status to analgesic agent; Z95.0 Presence of cardiac pacemaker
CPT/HCPCS: 99283

== ENCOUNTER 2018-03-10 10:44 | Emergency (ER) | payer MEDICARE ==
--- NOTE | 2018-03-10 14:16 | ER Document Report ---
ED General - General Chief Complaint: Post Surgical Pain Stated Complaint: POST-OP COMPLICATIONS Time Seen by Provider: 03/10/18 14:09 Information source: Patient Notes: Chief complaint: Leaking peritoneal fluid History of complain:( obtained from----patient) 72 years old male had a peritoneal tap done on the fourth of this month. He was cannulated on the left lower quadrant. Since then days fluid leaking from the needle site. Therefore he was brought to the ED. He was soaked in fluid over his shirt. Otherwise he status score did not change. Onset: As above as above Duration: As above Severity: Mild Quality: Not applicable Context: As described above Exacerbating factor and relieving factors: Change of position REVIEW OF SYSTEMS: CONSTITUTIONAL : Denies fever, chills, or sweats. Denies recent illness. EENT: Denies eye, ear, throat, or mouth pain or symptoms. Denies nasal or sinus congestion or discharge. Denies throat, tongue, or mouth swelling or difficulty swallowing. CARDIOVASCULAR: Denies chest pain. Denies palpitations or racing or irregular heart beat. Denies ankle edema. RESPIRATORY: Denies cough, cold, or chest congestion. Denies shortness of breath, difficulty breathing, or wheezing. GASTROINTESTINAL: Denies distention. Denies nausea, vomiting, or diarrhea. Denies blood in vomitus, stools, or per rectum. Denies black, tarry stools. Denies constipation. GENITOURINARY: Denies difficulty urinating, painful urination, burning, frequency, blood in urine, or discharge. FEMALE GENITOURINARY: Denies vaginal bleeding, heavy or abnormal periods, irregular periods. Denies vaginal discharge or odor. MUSCULOSKELETAL: As described above SKIN: Denies rash, lesions or sores. HEMATOLOGIC : Denies easy bruising or bleeding. LYMPHATIC: Denies swollen, enlarged glands. NEUROLOGICAL: Denies confusion or altered mental status. Denies passing out or loss of consciousness. Denies dizziness or lightheadedness. Denies headache. Denies weakness or paralysis or loss of use of either side. Denies problems with gait or speech. Denies sensory loss, numbness, or tingling. Denies seizures. PSYCHIATRIC: Denies anxiety or stress. Denies depression, suicidal ideation, or homicidal ideation. ALL OTHER SYSTEMS REVIEWED AND NEGATIVE. PHYSICAL EXAMINATION: GENERAL: no acute distress. Leaking serosanguineous fluid over the left side of the abdomen and soaked his shirt. HEAD: Atraumatic, normocephalic. EYES: Pupils equal round and reactive to light, extraocular movements intact, conjunctiva are normal. ENT: Nares patent, oropharynx clear without exudates. Moist mucous membranes. NECK: Normal range of motion, supple without lymphadenopathy LUNGS: Breath sounds clear to auscultation bilaterally and equal. No wheezes rales or rhonchi. HEART: Regular rate and rhythm without murmurs ABDOMEN: Soft, nontender, distended abdomen due to ascites abdomen. No guarding , no rebound. No masses appreciated. There is a pinpoint needlestick point which is leaking serosanguineous fluid continuously. Examination of genitals-deferred Musculoskeletal: NEUROLOGICAL: Cranial nerves grossly intact. Normal speech, normal gait. Normal sensory, motor exams PSYCH: Normal mood, normal affect. SKIN: Warm, Dry, normal turgor, no rashes or lesions noted. Dictation was performed using [employer] voice recognition software TRAVEL OUTSIDE OF THE [place] IN LAST 30 DAYS: No - HPI Notes: Dictated - Related Data Allergies/Adverse Reactions: oxycodone Allergy (Verified 03/04/18 14:14) Past Medical History - Social History Smoking Status: Former Smoker Frequency of alcohol use: Heavy drinker 4 years ago Family History: Reviewed & Not Pertinent - Past Medical History Cardiac Medical History: Reports: Hx Atrial Fibrillation, Hx Congestive Heart Failure - pulmonary edema, Hx Hypertension Endocrine Medical History: Reports: Hx Diabetes Mellitus Type 2 Renal/ Medical History: Denies: Hx Peritoneal Dialysis GI Medical History: Reports: Hx Cirrhosis Musculoskeletal Medical History: Reports Hx Arthritis - osteo Past Surgical History: Reports: Hx Abdominal Surgery - umbilical hernia repair/ AAA, Hx Appendectomy, Hx Cardiac Surgery - pacemaker, Hx Open Heart Surgery - CABG, Hx Orthopedic Surgery Review of Systems - Review of Systems Notes: Dictated Physical Exam - Vital signs Vitals: Temp Pulse Resp BP Pulse Ox 97.7 F 87 14 105/66 98 03/10/18 11:38 03/10/18 11:38 03/10/18 11:38 03/10/18 11:38 03/10/18 11:38 - Notes Notes: Dictated Course - Re-evaluation Re-evalutation: 03/10/18 14:15 Left lower abdominal wall where the fluid is leaking was cleaned and colostomy bag was applied to collect the fluid. Without soiling the clothes. - Vital Signs Vital signs: Temp Pulse Resp BP Pulse Ox 97.7 F 87 14 105/66 98 03/10/18 11:38 03/10/18 11:38 03/10/18 11:38 03/10/18 11:38 03/10/18 11:38 Discharge - Discharge Clinical Impression: Ascites due to alcoholic cirrhosis Condition: Fair Disposition: HOME, SELF-CARE Instructions: Cirrhosis ([facility]) Referrals: CRISTINA RODRIGUEZ MD [Primary Care Provider] - Follow up as needed
[2018-03-10 14:27] VITALS: BP 104/66
== END 2018-03-10 14:27 | disposition home or self-care (01) ==
LOC: ER 10:44
DX: K70.31 Alcoholic cirrhosis of liver with ascites (principal); G89.18 Other acute postprocedural pain; R10.32 Left lower quadrant pain; Z87.891 Personal history of nicotine dependence; I10 Essential (primary) hypertension; E11.9 Type 2 diabetes mellitus without complications
CPT/HCPCS: 99284

== ENCOUNTER 2018-05-06 10:33 | Emergency (ER) | payer MEDICARE, OTHER ==
[2018-05-06] MEDS ORDERED: DILTIAZEM HCL INJ 25 MG/5 ML VIAL IV ONE (10:51)
[2018-05-06] MEDS ORDERED: ASPIRIN 81 MG TABLET, CHEWABLE PO ONE (10:51)
[2018-05-06] MEDS ORDERED: ASPIRIN 81 MG TABLET, CHEWABLE ONE (10:51)
[2018-05-06] MEDS ORDERED: IPRATROPIUM/ALBUTEROL 0.5-2.5 MG/3 ML AMPUL NEB ONE (10:53)
[2018-05-06 11:13] LABS: HEMATOCRIT 26.6 % (37.9-51.0); HEMOGLOBIN 8.7 g/dL (13.5-17.0); MEAN CORPUSCULAR HEMOGLOBIN 25.8 pg (27.0-33.4); MEAN CORPUSCULAR HGB CONC 32.7 g/dL (32.0-36.0); MEAN CORPUSCULAR VOLUME 79 fl (80-97); PLATELET COUNT 308 10^3/uL (150-450); RED BLOOD COUNT 3.37 10^6/uL (4.35-5.55); RED CELL DISTRIBUTION WIDTH 19.9 % (11.5-14.0); WHITE BLOOD COUNT 15.3 10^3/uL (4.0-10.5)
[2018-05-06] MEDS ORDERED: HEPARIN SODIUM,PORCINE/D5W 25,000 UNIT/250 ML RTUINJ IV ONE (11:13)
[2018-05-06] MEDS ORDERED: HEPARIN SOD (PORCINE) 5,000 UNIT/ML 1 ML SYRINGE ONE (11:14)
[2018-05-06] MEDS ORDERED: HEPARIN SOD (PORCINE) 1,000 UNIT/ML 10 ML VIAL IV PRN ×2 (11:14→11:21)
[2018-05-06] MEDS ORDERED: HEPARIN SODIUM,PORCINE/D5W 25,000 UNIT/250 ML RTUINJ IV PRN (11:14)
[2018-05-06] MEDS ORDERED: FENTANYL CITRATE INJ/PF 100 MCG/2 ML AMPUL ONE (11:18)
--- NOTE | 2018-05-06 11:25 | ER Document Report ---
ED Cardiac - General Stated Complaint: CONFUSION Time Seen by Provider: 05/06/18 10:46 TRAVEL OUTSIDE OF THE [place] IN LAST 30 DAYS: No - HPI Notes: Patient is a 73-year-old male that presents to the emergency department for chief complaint of shortness of breath. HPI is limited because of patient's current mental status. He was [facility] from detention facility for shortness of breath. longterm reports that he is usually on room air and was oxygenating at 89%. He appeared more short of breath and confused. Unknown what his baseline mental status is Past Medical History: Atrial fibrillation, portal hypertension, CKD Past Surgical History: Unknown Social History: Unknown Family History: Reviewed and noncontributory for presenting illness Allergies: Reviewed, see documented allergy list. ROS: Unable to obtain review of systems because of current mental status and acuity of condition PHYSICAL EXAMINATION: Vital signs reviewed, nursing noted reviewed. GENERAL: Somnolent HEAD: Atraumatic, normocephalic. EYES: Eyes appear normal, extraocular movements intact, sclera anicteric, conjunctiva are normal. ENT: nares patent, oropharynx clear without exudates. Dry mucous membranes. NECK: Normal range of motion, supple without lymphadenopathy LUNGS: Bilateral rhonchi, mild accessory muscle use, diminished bilaterally. HEART: Irregularly irregular and tachycardic ABDOMEN: Soft, nontender, normoactive bowel sounds. Abdominal distention EXTREMITIES: Nontender, +2 pitting lower extremity edema. NEUROLOGICAL: No focal neurological deficits. Moves all extremities spontaneously Motor and sensory grossly intact on exam. PSYCH: Normal mood SKIN: Warm, Dry, normal turgor. Right lower extremity erythema and induration extending from lower leg through medial right thigh and scrotum. No scrotal edema. No crepitus in the groin or scrotum - Related Data Allergies/Adverse Reactions: oxycodone Allergy (Verified 03/04/18 14:14) Past Medical History - Social History Smoking Status: Unknown if Ever Smoked Family History: Reviewed & Not Pertinent - Past Medical History Cardiac Medical History: Reports: Hx Atrial Fibrillation, Hx Congestive Heart Failure - pulmonary edema, Hx Hypertension Endocrine Medical History: Reports: Hx Diabetes Mellitus Type 2 Renal/ Medical History: Denies: Hx Peritoneal Dialysis GI Medical History: Reports: Hx Cirrhosis Musculoskeletal Medical History: Reports Hx Arthritis - osteo Past Surgical History: Reports: Hx Abdominal Surgery - umbilical hernia repair/ AAA, Hx Appendectomy, Hx Cardiac Surgery - pacemaker, Hx Open Heart Surgery - CABG, Hx Orthopedic Surgery Review of Systems - Review of Systems Notes: Dictated Physical Exam - Vital signs Vitals: Resp 20 05/06/18 10:37 - Notes Notes: Dictated Course - Re-evaluation Re-evalutation: 05/06/18 11:32 Vitals reviewed. Patient in an unstable tachydysrhythmia. EKG appeared to be A. fib with RVR with ST elevation. I reviewed his EKG with Dr. Angel at 1047 who agrees there is concern for STEMI. Patient care was discussed with [facility] for STEMI and they accepted transfer. Patient was ordered aspirin, heparin and Plavix. And patient was given a dose of Cardizem which temporarily improved his heart rate and blood pressure however he became tachycardic again. Because of his unstable rhythm he was given synchronized cardioversion. This did improve his heart rate from 170s-119. He remained tachycardic. He was given aggressive IV hydration. He has a right lower leg cellulitis and was given vancomycin and Zosyn. Blood cultures and lactate ordered. Repeat EKG now shows ventricularly paced rhythm. I discussed his care at [address] Cr , cardiology at [facility]. He reviewed the EKG and does not feel patient is having a STEMI. He requested that he does not receive any further blood thinning medications including the heparin, Plavix and lytics. He does accept patient for transport and admission. 05/06/18 11:42 Patient hypoglycemic and given 1 amp of D50. Blood pressure improving with IV hydration. - Vital Signs Vital signs: Temp Pulse Resp BP Pulse Ox 100.7 F H 33 H 60/37 L 95 05/06/18 11:33 05/06/18 11:50 05/06/18 11:51 05/06/18 11:51 - Laboratory Result Diagrams: 05/06/18 10:43 05/06/18 10:43 Laboratory results interpreted by me: 05/06/18 05/06/18 05/06/18 10:43 10:43 10:43 WBC 15.3 H RBC 3.37 L Hgb 8.7 L Hct 26.6 L MCV 79 L MCH 25.8 L RDW 19.9 H Seg Neuts % (Manual) 96 H Band Neutrophils % 1 L Lymphocytes % (Manual) 1 L Monocytes % (Manual) 1 L Abs Neuts (Manual) 14.8 H Abs Lymphs (Manual) 0.2 L APTT 89.6 H Sodium 136.8 L Carbon Dioxide 21 L BUN 58 H Creatinine 2.57 H Est GFR ( Amer) 30 L Est GFR (Non-Af Amer) 25 L Glucose 35 L* POC Glucose Lactic Acid 05/06/18 05/06/18 10:43 11:40 WBC RBC Hgb Hct MCV MCH RDW Seg Neuts % (Manual) Band Neutrophils % Lymphocytes % (Manual) Monocytes % (Manual) Abs Neuts (Manual) Abs Lymphs (Manual) APTT Sodium Carbon Dioxide BUN Creatinine Est GFR ( Amer) Est GFR (Non-Af Amer) Glucose POC Glucose 40 L Lactic Acid 2.2 H - EKG Interpretation by Me Additional EKG results interpreted by me: 05/06/18 11:39 1039: Atrial fibrillation, rate 149, normal axis, frequent PVCs, anterior STEMI 1128: Ventricularly paced, rate 119, left axis. III ST morphology difference Procedures - Additional Procedures cardioversion Time performed: 11:20 Notes: 05/06/18 12:59 Synchronized cardioversion performed for unstable V. tach. Patient given 100 mcg IV fentanyl prior to defibrillation. AP pads placed on chest and back. Cardioverted at 200 J. 1 shock delivered with improvement of heart rate and resulting A. fib rhythm Critical Care Note - Critical Care Note Total time excluding time spent on procedures (mins): 90 - Septic shock, tachydysrhythmia, conversations with paramedical aide. Management of hemodynamics. Potential 30 vascular decompensation Discharge - Discharge Clinical Impression: Tachyarrhythmia, Septic shock, Cellulitis of right leg, Cardiogenic shock STEMI (ST elevation myocardial infarction) Qualifiers: Involved coronary artery: other coronary artery Qualified Code(s): I21.29 - ST elevation (STEMI) myocardial infarction involving other sites Condition: Critical Disposition: [facility]
[2018-05-06] MEDS ORDERED: VANCOMYCIN HCL INJ 1000 MG VIAL IV ONE (11:26)
[2018-05-06] MEDS ORDERED: PIPERACILLIN/TAZOBACTAM 3.375 GM VIAL IV ONE (11:26)
[2018-05-06] MEDS ORDERED: ASPIRIN 600 MG SUPP, RECTAL PR ONE (11:28)
[2018-05-06 11:29] LABS: ANION GAP 12 (5-19); BLOOD UREA NITROGEN 58 mg/dL (7-20); CALCIUM 8.9 mg/dL (8.4-10.2); CARBON DIOXIDE 21 mmol/L (22-30); CHLORIDE 104 mmol/L (98-107); POTASSIUM 4.4 mmol/L (3.6-5.0); SODIUM 136.8 mmol/L (137-145)
[2018-05-06 11:36] LABS: ABSOLUTE LYMPHOCYTES# (MANUAL) 0.2 10^3/uL (0.5-4.7); ABSOLUTE MONOCYTES # (MANUAL) 0.2 10^3/uL (0.1-1.4); ABSOLUTE NEUTROPHILS# (MANUAL) 14.8 10^3/uL (1.7-8.2); BAND NEUTROPHILS % (MANUAL) 1 % (3-5); BASOPHILS % (MANUAL) 0 % (0-2); EOSINOPHILS % (MANUAL) 1 % (0-6); LYMPHOCYTES % (MANUAL) 1 % (13-45); MONOCYTES % (MANUAL) 1 % (3-13); SEGMENTED NEUTROPHILS % (MAN) 96 % (42-78); TOTAL CELLS COUNTED 100
[2018-05-06 11:38] LABS: ANISOCYTOSIS 2+; HYPOCHROMASIA SLIGHT; OVALOCYTES 1+; PLATELET COMMENT ADEQUATE; POIKILOCYTOSIS 1+; POLYCHROMASIA SLIGHT; SCHISTOCYTES 1+
--- NOTE | 2018-05-06 11:40 | RADIOLOGY REPORT (SQ) ---
EXAM DESCRIPTION: CHEST SINGLE VIEW COMPLETED DATE/TIME: 05/06/2018 11:28 am REASON FOR STUDY: shortness of breath COMPARISON: 03/04/2018 NUMBER OF VIEWS: One view. TECHNIQUE: Single frontal radiographic image of the chest acquired. LIMITATIONS: Body habitus. Poor inspiratory effort. FINDINGS: LUNGS AND PLEURA: Low lung volumes. Chronic interstitial changes. No obvious superimpose d pneumonia. MEDIASTINUM AND HEART: Stable heart size and mediastinal structures. SUPPORT DEVICES: Appropriate location without change. BONY STRUCTURES: No acute findings. HARDWARE: CABG. OTHER: No other significant finding. IMPRESSION: Chronic CHF. No obvious superimposed pneumonia. Reading location - IP/workstation name: [email or web address]
[2018-05-06] MEDS ORDERED: DEXTROSE 50%-WATER 25 GM/50 ML DISP.SYRIN IV ONE (11:41)
[2018-05-06 11:54] LABS: GLUCOSE 35 mg/dL (75-110)
[2018-05-06 12:18] VITALS: BP 60/37
[2018-05-06] MEDS ORDERED: AMIODARONE HCL INJ 150 MG/3 ML VIAL IV ONE (12:39)
--- NOTE | 2018-05-07 08:57 | EKG REPORT ---
SEVERITY:- ABNORMAL ECG - VENTRICULAR-PACED COMPLEXES NONSPECIFIC IVCD WITH LAD : Confirmed by: Leonardo Angel 07-May-2018 08:57:13
--- NOTE | 2018-05-07 08:59 | EKG REPORT ---
SEVERITY:- ABNORMAL ECG - ATRIAL FIBRILLATION VENTRICULAR PREMATURE COMPLEX NONSPECIFIC INTRAVENTRICULAR CONDUCTION DELAY ANTERIOR AND INFERIOR INFARCT, ACUTE : Confirmed by: Leonardo Angel 07-May-2018 08:58:00
== END 2018-05-06 13:00 | disposition short-term general hospital (02) ==
LOC: ER 10:33
DX: R65.21 Severe sepsis with septic shock (principal); R57.0 Cardiogenic shock; I21.09 ST elevation (STEMI) myocardial infarction involving other coronary artery of anterior wall; L03.115 Cellulitis of right lower limb; I48.91 Unspecified atrial fibrillation; I49.3 Ventricular premature depolarization; E11.649 Type 2 diabetes mellitus with hypoglycemia without coma; R06.02 Shortness of breath; R41.0 Disorientation, unspecified; R00.0 Tachycardia, unspecified; R09.89 Other specified symptoms and signs involving the circulatory and respiratory systems; R60.0 Localized edema; I10 Essential (primary) hypertension; Z95.1 Presence of aortocoronary bypass graft; Z95.5 Presence of coronary angioplasty implant and graft; Z88.5 Allergy status to narcotic agent
CPT/HCPCS: 93005; 94640; 99291; 99292; 96375; 96365; 96368; 36415; 87040; 82962; 85025; 85730; 87077; 80048; 84484; 87186; 83605; 71045; 93010; J1644 ×2; A9270 ×3; J3490 ×2; J3010; J3370; J0282; J2543; J7620